=== PATIENT | female | born 1955 | race Two or more races ===

== ENCOUNTER 2017-02-28 19:41 | Inpatient (IN) | payer MEDICARE, MEDICAID ==
[~2017-02-28] VITALS: Ht 149.9 cm; Wt 57.2 kg
--- NOTE | 2017-02-28 19:46 | NUR ---
pt michael felder bus stop for report c/o dizziness w/ generalized weakness, states "I felt like I was going to pass out." while attempting to get on the bus today. AOx3 w/ resp even & unlabored, facial grimacing, denies any sob w/ mild discomfort noted. pt in gown, on continuous monitoring. Dr. Roach at bedside for further eval.
--- NOTE | 2017-02-28 20:11 | NUR ---
PUJA started, labs drawn & sent.
[2017-02-28 20:17] LABS: BASOPHILS % (AUTO) 0.5 % (0.0-2.0); EOSINOPHILS # (AUTO) 0.1 /CMM (0.0-0.7); HEMATOCRIT 40 % (33-45); HEMOGLOBIN 13.3 g/dL (11.5-14.8); LYMPHOCYTES # (AUTO) 2.1 /CMM (0.8-4.8); LYMPHOCYTES % (AUTO) 29.3 % (20.0-44.0); MEAN CORPUSCULAR HEMOGLOBIN 31 PG (26.0-33.0); MEAN CORPUSCULAR HGB CONC 33 g/dl (31.0-36.0); MEAN CORPUSCULAR VOLUME 93 fL (82-100); MONOCYTES # (AUTO) 0.4 /CMM (0.1-1.30); MONOCYTES % (AUTO) 5.8 % (2.0-12.0); NEUTROPHILS # (AUTO) 4.5 /CMM (1.8-8.9); NEUTROPHILS % (AUTO) 62.4 % (43.0-81.0); PLATELET COUNT (AUTO) 246 /CMM (150-450); RDW COEFFICIENT OF VARIATION 12.3 (11.5-15.0); RED BLOOD CELL COUNT(AUTO) 4.27 MIL/uL (4.0-5.2); WHITE BLOOD COUNT (AUTO) 7.1 K/uL (4.3-11.0)
[2017-02-28] MEDS ORDERED: ONDANSETRON HCL/PF 4 MG/2 ML VIAL ONE ×2 (20:17→21:55)
[2017-02-28] MEDS ORDERED: MECLIZINE HCL 25 MG TABLET ONE (20:17)
--- NOTE | 2017-02-28 20:26 | NUR ---
pt medicated as ordered.
[2017-02-28 20:28] LABS: CALCIUM, SERUM 9.4 mg/dL (8.5-10.1); CARBON DIOXIDE 24 mmol/L (21-32); CHLORIDE 103 mmol/L (98-107); CREATININE 0.8 mg/dL (0.6-1.3); GLUCOSE 133 mg/dL (74-106); POTASSIUM 3.7 mmol/L (3.5-5.1); SODIUM SERUM 140 mmol/L (136-145); UREA NITROGEN, BLOOD 27 mg/dL (7-18)
[2017-02-28] MEDS ORDERED: MECLIZINE HCL 12.5 MG TABLET PO ONE (20:30)
[2017-02-28] MEDS ORDERED: ONDANSETRON HCL/PF - ER 4 MG/2 ML VIAL IV ONE (20:30)
--- NOTE | 2017-02-28 20:30 | NUR ---
Sent to CT.
[2017-02-28 20:31] LABS: INR 0.94 (0.87-1.13); PROTHROMBIN TIME 9.8 SECS (9.5-12.7)
[2017-02-28 20:34] LABS: ALANINE AMINOTRANSFERASE 29 U/L (12-78); ALBUMIN 4.1 g/dL (3.4-5.0); ALKALINE PHOSPHATASE 66 U/L (46-116); ASPARTATE AMINOTRANSFERASE 45 U/L (15-37); BILIRUBIN,DIRECT 0.1 mg/dL (0.0-0.2); BILIRUBIN,TOTAL 0.3 mg/dL (0.2-1.0)
[2017-02-28 20:36] LABS: TROPONIN I < 0.017 ng/mL (0.00-0.056)
--- NOTE | 2017-02-28 20:58 | NUR ---
pt back fr CT w/ resp even & unlabored, nad noted.
--- NOTE | 2017-02-28 21:21 | NUR ---
DR.OLEG HERNANDEZ
[2017-02-28] MEDS ORDERED: IV SET PRIMARY 1 EA INFUS.SET MC ONE (21:55)
[2017-02-28] MEDS ORDERED: IV NS 0.9% 500 ML IV ONE (21:55)
[2017-02-28] MEDS ORDERED: IV NS 0.9% 500 ML BAG IV ONE (22:00)
[2017-02-28] MEDS ORDERED: ONDANSETRON HCL/PF 4 MG/2 ML VIAL IVP ONE (22:00)
--- NOTE | 2017-02-28 22:09 | NUR ---
Report given to JO-ANN Larson for TREMAINE, pt admission to tele rm [id number].
[2017-02-28] MEDS ORDERED: ONDANSETRON HCL/PF 4 MG/2 ML VIAL IVP PRN (22:30)
[2017-02-28] MEDS ORDERED: MAGNESIUM HYDROXIDE 30 ML UDC PO PRN (22:30)
[2017-02-28] MEDS ORDERED: ZOLPIDEM TARTRATE 5 MG TABLET PO PRN (22:30)
[2017-02-28] MEDS ORDERED: MORPHINE SULFATE INJ 2 MG/ML DISP.SYRIN IV PRN (22:30)
[2017-02-28 23:00] VITALS: BP 134/81
--- NOTE | 2017-02-28 23:00 | NUR ---
CHILD WELFARE ASSISTANT ADMITTING NOTES: ADMITTED A 61 YO FEMALE PATIENT WHO WAS BROUGHT TO TELE FLOOR VIA GURNEY AFTER BEING SEEN IN THE ER FOR DIZZINESS AND NAUSEA. PER REPORT, PATIENT WAS PICKED UP BY RETAIL MANAGEMENT KEYHOLDER FROM BUS STOP AFTER BEING VERY DIZZY. PATIENT IS AOX4, FRENCH SPEAKING, ON ROOM AIR, BREATHING EVEN AND UNLABORED. BREATH SOUNDS CLEAR TO AUSCULTATION. STATES THAT SHE DOES NOT FEEL NAUSEOUS AT THIS TIME. PIV OVER L HAND G 18 INTACT AND PATENT TO FLUSH. SKIN IS INTACT. PROVIDED FOR COMFORT AND SAFETY. ORIENTED TO UNIT. WILL CONT TO MONITOR.
[2017-02-28] MEDS ORDERED: IV PREMIX 0.45% NS + KCL 1,000 ML IV ONE (23:05)
[2017-02-28] MEDS ORDERED: IV SET PRIMARY PUMP SET 1 EA INFUS.SET MC ONE (23:08)
--- NOTE | 2017-02-28 23:32 | NUR ---
RN NOTES: UNABLE TO SCAN IV FLUID OF 1/2 NS + 20 MEQS KCL. MANUAL BARCODE ENTERED.
--- NOTE | 2017-03-01 06:45 | NUR ---
PATIENT CONSUMER MARKETER CLOSING NOTES: PATIENT IN BED, AOX4, ON ROOM AIR, BREATHING EVEN AND UNLABORED. ON TELE MONITOR, WITH SINUS RHYTHM AT RATE OF 60S. PIV OVER L HAND G18 INTACT AND INFUSING WELL WITH 1/2 NS + 20 MEQS KCL RUNNING AT 70 ML/HR. PROVIDED FOR COMFORT AND SAFETY. NO ACUTE CHANGE IN CONDITION NOTED THROUGH SHIFT. NO NAUSEA OR VOMITING NOTED. WILL ENDORSE TO AM RN FOR TREMAINE.
[2017-03-01 08:00] VITALS: BP 115/75
[2017-03-01] MEDS: DOCUSATE SODIUM 100 MG CAPSULE PO SCH ×2 (08:26→16:53)
[2017-03-01] MEDS: PANTOPRAZOLE 40 MG TABLET.DR PO SCH (08:26)
[2017-03-01 08:27] LABS: BASOPHILS % (AUTO) 0.5 % (0.0-2.0); EOSINOPHILS # (AUTO) 0.1 /CMM (0.0-0.7); EOSINOPHILS % (AUTO) 0.8 % (0.0-6.0); HEMATOCRIT 36 % (33-45); HEMOGLOBIN 12.1 g/dL (11.5-14.8); LYMPHOCYTES # (AUTO) 1.5 /CMM (0.8-4.8); LYMPHOCYTES % (AUTO) 22.1 % (20.0-44.0); MEAN CORPUSCULAR HEMOGLOBIN 31 PG (26.0-33.0); MEAN CORPUSCULAR HGB CONC 34 g/dl (31.0-36.0); MEAN CORPUSCULAR VOLUME 93 fL (82-100); MONOCYTES # (AUTO) 0.5 /CMM (0.1-1.30); MONOCYTES % (AUTO) 7.4 % (2.0-12.0); NEUTROPHILS # (AUTO) 4.6 /CMM (1.8-8.9); NEUTROPHILS % (AUTO) 69.2 % (43.0-81.0); PLATELET COUNT (AUTO) 229 /CMM (150-450); RDW COEFFICIENT OF VARIATION 13.1 (11.5-15.0); RED BLOOD CELL COUNT(AUTO) 3.86 MIL/uL (4.0-5.2); WHITE BLOOD COUNT (AUTO) 6.6 K/uL (4.3-11.0)
[2017-03-01] MEDS ORDERED: ATEN50TA PO (08:35)
[2017-03-01] MEDS ORDERED: MEMA10TA PO (08:35)
[2017-03-01] MEDS ORDERED: AMLO5TAB2 PO (08:37)
[2017-03-01 08:43] LABS: ALBUMIN 3.3 g/dL (3.4-5.0); BILIRUBIN,TOTAL 0.3 mg/dL (0.2-1.0); CALCIUM, SERUM 8.2 mg/dL (8.5-10.1); CREATININE 0.6 mg/dL (0.6-1.3); MAGNESIUM 2.2 mg/dL (1.8-2.4); PHOSPHORUS 3.2 mg/dL (2.5-4.9); POTASSIUM 3.8 mmol/L (3.5-5.1); TOTAL PROTEIN, SERUM 7.1 g/dL (6.4-8.2)
[2017-03-01 08:52] LABS: THYROID STIMULATING HORMONE 0.755 uIU/mL (0.358-3.74)
[2017-03-01] MEDS: MEMANTINE HCL 5 MG TABLET PO SCH ×2 (10:11→16:54)
--- NOTE | 2017-03-01 10:26 | NUR ---
Social service consult requested by Dr. Sebastian regarding pt. living alone. Per H&P report by Dr. Sebastian, pt. is a 61-year-old Female was brought in by ambulance complaining of dizziness and room spinning sensations while sitting at a bus stop earlier today. The patient reports nausea, but no vomiting. SW met with pt. bedside. Pt. is alert and oriented x 4. Pt. appeared lethargic. Pt. is ambulatory and independent with her ADL's. Pt. is Persian speaking and SW had a physical therapy nurse to assist in translation. Pt. informed SW she resides with her roommate Joanne who is also her emergency photoresist contact printer. Pt. resides at [address] [place] [address], [facility] [address], [place] [address]. Pt. has no family supports in [place]. Most of her family resides in [place]. Pt. would like to go back home once medically cleared for discharge. Pt. does not consume alcohol, drugs or cigarettes. Pt. is retired and receives approximately $800/ month is SSI. Pt. denies suicidal/homicidal ideations and visual/auditory hallucinations at this time. Pt. has no past history of psychiatric diagnosis or hospitalizations. No social service needs are required at this time and SW will re-assess if necessary. SAKINA updated rifle case repairer
[2017-03-01 12:00] VITALS: BP 138/85
[2017-03-01] MEDS: ACETAMINOPHEN 325 MG TABLET PO PRN (14:29)
[2017-03-01 16:00] VITALS: BP 132/84
[2017-03-01] MEDS ORDERED: MEMANTINE HCL 5 MG TABLET PO SCH (17:00)
--- NOTE | 2017-03-01 19:12 | NUR ---
HIGH SCHOOL VICE PRINCIPAL CLOSING NOTES NO SIGNIFICANT CHANGES IN PATIENT CONDITION THROUGHOUT THE SHIFT. NO SOB OR DISTRESS NOTED AT THIS TIME. PATIENT DENIES PAIN. HEART RATE SR AT 68. BED IN A LOW POSITION, CALL LIGHT WITHIN PATIENT REACH. WILL ENDORSE FOR TREMAINE.
--- NOTE | 2017-03-01 19:30 | NUR ---
TELE PARTS SALES MANAGER INITIAL NOTES GOT REPORT FROM AM NURSE DENAE, CHECKED PT SHE'S AWAKE AND ALERT WATCHING TV AT THIS TIME, COMPLAINING OF PAIN ON HER IV SITE LEFT HAND , INFILTRATED AND NOTED SWOLLEN. REMOVED AND AND APPLIED ICE PACK TO RELIEVED PAIN. DENIES ANY DIZZINESS AT THIS TIME. KEPT HER WARM AND COMFORTABLE AT ALL TIMES. TELE SINUS RHYTHM PER MONITOR, PLACE CALL LIGHT AT REACH WILL RE-INSERT A NEW LINE LATER. WILL CONTINUE TO MONITOR.
[2017-03-01 20:00] VITALS: BP 146/94
[2017-03-02] VITALS: BP 141/89
--- NOTE | 2017-03-02 | NUR ---
MEAT HANGER/NOTES PT SLEEPING AT THIS TIME WITHOUT ANY ACUTE DISTRESS NOTED. IVF STILL INFUSING . TELE SR PER MONITOR,.KEPT HER WARM AND COMFORTABLE AT ALL TIMES. WILL CONTINUE TO MONITOR.
[2017-03-02 04:00] VITALS: BP 136/87
--- NOTE | 2017-03-02 07:20 | NUR ---
HEEL TOP LIFT SPLITTER OPENING RECEIVED PATIENT A/0X4 CHILEAN SPEAKING. PATIENT DENIES DIZZINESS, SOB, DIFFICULTY BREATHING OR PAIN; IN STABLE CONDITION. NSR TELE. PATIENT STATES NO NEEDS AT THIS TIME. CALL LIGHT IN REACH, BED LOWERED AND LOCKED, RAILS UPX3 FOR SAFETY AND WILL ROUND Q2H OR LESS PER NEEDS.
[2017-03-02 08:00] VITALS: BP 141/89
[2017-03-02] MEDS: PANTOPRAZOLE 40 MG TABLET.DR PO SCH (08:25)
[2017-03-02 08:26] VITALS: BP 141/89
[2017-03-02] MEDS: DOCUSATE SODIUM 100 MG CAPSULE PO SCH (08:26)
[2017-03-02] MEDS: MEMANTINE HCL 5 MG TABLET PO SCH (08:26)
[2017-03-02] MEDS: ACETAMINOPHEN 325 MG TABLET PO PRN (08:28)
[2017-03-02] MEDS ORDERED: AMLODIPINE BESYLATE 5 MG TABLET PO SCH (09:00)
[2017-03-02] MEDS ORDERED: ATENOLOL 50 MG TABLET PO SCH (09:00)
[2017-03-02] MEDS ORDERED: MECL12.582 PO (09:55)
--- NOTE | 2017-03-02 11:19 | NUR ---
BIOLOGICS SPECIALIST NOTES PATIENT EDCUATED ON DISCHARGE. STABLE STATES UNDERSTANDING. RX CALLED TO PHARMACY. PATIENT IV REMOVED PRESSURE AND DRESSING APPLIED NO BLEEDING. PATIENT HAS TRANSPORT HOME WITH FAMILY. TRANSLATED WITH STEVE ESPINOZA AND PATIENT HAS NO FURTHER QUESTIONS.
--- NOTE | 2017-03-02 11:30 | NUR ---
SLAG EXPANDERAPPLICATION PACKAGING SPECIALIST PATIENT LEFT IN STABLE CONDITION NO COMPLICATIONS. ASSISTED DOWNSTAIRS TO PRIVATE CAR BY ALEXIS WILSON.
== END 2017-03-02 11:30 | disposition home health service (06) | DRG 391 ==
LOC: ER 19:42 → TELE 22:01
PROVIDERS: ADMIT Internal Medicine; ATTEND Internal Medicine
DX: A08.4 Viral intestinal infection, unspecified (principal); N17.0 Acute kidney failure with tubular necrosis; G93.41 Metabolic encephalopathy; E86.0 Dehydration; E78.5 Hyperlipidemia, unspecified; R42 Dizziness and giddiness; I10 Essential (primary) hypertension; F03.90 Unspecified dementia, unspecified severity, without behavioral disturbance, psychotic disturbance, mood disturbance, and anxiety; Z87.820 Personal history of traumatic brain injury; R73.9 Hyperglycemia, unspecified; I12.9 Hypertensive chronic kidney disease with stage 1 through stage 4 chronic kidney disease, or unspecified chronic kidney disease; N18.9 Chronic kidney disease, unspecified
CPT/HCPCS: 36415; 70450-TC; 70551-TC; 71010-TC; 80048-TC; 80053-TC; 80061-TC; 80076-TC; 83735-TC; 84100-TC; 84443-TC; 84484-TC; 85025-TC; 85730-TC; 87081-TC; 93307-TC; 93880-TC; A4606; A6403; J2405; J3480; J3490; J7040; J8597; Z7610

== ENCOUNTER 2017-07-21 19:07 | Emergency (ER) | payer MEDICARE, MEDICAID ==
[~2017-07-21] VITALS: Ht 157.5 cm; Wt 61.2 kg
[~2017-07-21 19:07] MED LIST: AMLO5TAB2 PO; ATEN50TA PO; MECL12.582 PO; MEMA10TA PO
[2017-07-21 19:10] VITALS: BP 153/88
--- NOTE | 2017-07-21 19:13 | NUR ---
[id number] FROM HOME: VERTIGO, SUDDEN ONSET. Hx OF VERTIGO. DENIES N/V/D. A/OX 4. BREATHING EVEN AND UNLABORED. NO SOB. VITALS STABLE. SAFETY AND COMFORT MEASURES IN PLACE. AWAITING MD ORDERS.
--- NOTE | 2017-07-21 19:23 | NUR ---
REPORT GIVEN TO CAMRYN BUSCH FOR TREMAINE.
[2017-07-21] MEDS ORDERED: ONDANSETRON 4 MG TAB.RAPDIS ONE (19:57)
[2017-07-21] MEDS ORDERED: MECLIZINE HCL 25 MG TABLET ONE (19:57)
[2017-07-21] MEDS ORDERED: ONDANSETRON 4 MG TAB.RAPDIS SL ONE (20:00)
[2017-07-21] MEDS ORDERED: MECLIZINE HCL 25 MG TABLET PO ONE (20:00)
== END 2017-07-21 21:01 | disposition home or self-care (01) ==
LOC: ER 19:07
DX: H81.10 Benign paroxysmal vertigo, unspecified ear (principal); I10 Essential (primary) hypertension; F03.90 Unspecified dementia, unspecified severity, without behavioral disturbance, psychotic disturbance, mood disturbance, and anxiety; Z98.890 Other specified postprocedural states
CPT/HCPCS: 99283; A4606; J8597; Q0162; Z7610

== ENCOUNTER 2018-12-30 02:22 | Emergency (ER) | payer MEDICARE, MEDICAID ==
[~2018-12-30] VITALS: Ht 157.5 cm; Wt 56.7 kg
[~2018-12-30 02:22] MED LIST changes: -AMLO5TAB2 PO; +AMLO5TAB9 PO
[2018-12-30] MEDS ORDERED: PHENYLEPHRINE HCL NASAL SPRAY 15 ML BOTTLE NS ONE (02:32)
--- NOTE | 2018-12-30 02:35 | NUR ---
PT'S NOSE IS SEVERLY BLEEDING. NOSE CLIP PLACED ON THE PT'S NOSE. PT HAS AN EMESIS BASIN AND 4X4'S.
--- NOTE | 2018-12-30 02:35 | NUR ---
PT BIB RA WITH A C/O EPISTAXIS X 1 HR BUTCHER ASSISTANT. PT HAS HIGH BP AND RAN OUT OF HER MEDICATION TODAY. PT'S BP IS ELEVATED. PT DENIES BEING ON A BLOOD THINNER. PT WAS TAKEN TO ER 9 AND TRIAGED. PT IS ON THE MONITOR AND CONTINUOUS PULSE OX. PT'S BP IS ELEVATED. DR FUENTES IS AT THE BEDSIDE.
[2018-12-30] MEDS ORDERED: ENALAPRILAT DIHYD. (2.5MG/ML) 1.25 MG/ML VIAL IV ONE (02:41)
--- NOTE | 2018-12-30 02:42 | NUR ---
NEOSYNEPHRINE BOTTLE IS AT THE BEDSIDE.
--- NOTE | 2018-12-30 02:54 | NUR ---
PT IS STILL BLEEDING. PT REC'D MEDICATION ORDERED.
[2018-12-30 02:57] LABS: BASOPHILS # (AUTO) 0.1 /CMM (0.0-0.2); BASOPHILS % (AUTO) 0.9 % (0.0-2.0); EOSINOPHILS % (AUTO) 1.6 % (0.0-6.0); HEMATOCRIT 39 % (33-45); HEMOGLOBIN 12.9 g/dL (11.5-14.8); LYMPHOCYTES # (AUTO) 1.8 /CMM (0.8-4.8); MEAN CORPUSCULAR HGB CONC 34 g/dl (31.0-36.0); MEAN CORPUSCULAR VOLUME 94 fL (82-100); MONOCYTES # (AUTO) 0.5 /CMM (0.1-1.30); MONOCYTES % (AUTO) 6.7 % (2.0-12.0); NEUTROPHILS # (AUTO) 4.6 /CMM (1.8-8.9); NEUTROPHILS % (AUTO) 65.8 % (43.0-81.0); PLATELET COUNT (AUTO) 270 /CMM (150-450); RED BLOOD CELL COUNT(AUTO) 4.09 MIL/uL (4.0-5.2)
[2018-12-30] MEDS ORDERED: ENALAPRILAT INJ (1.25 MG/ML) 1.25 MG/ML VIAL IV PRN (03:00)
[2018-12-30] MEDS ORDERED: PHENYLEPHRINE 0.5% NASAL SPRAY 15 ML BOTTLE NS ONE (03:00)
[2018-12-30] MEDS ORDERED: IV NS 0.9% 1,000 ML BAG IV ONE (03:00)
--- NOTE | 2018-12-30 03:00 | NUR ---
BILATERAL 7.[address] FUENTES.
[2018-12-30 03:05] LABS: CALCIUM, SERUM 8.8 mg/dL (8.5-10.1); CREATININE 0.6 mg/dL (0.6-1.3); POTASSIUM 3.7 mmol/L (3.5-5.1)
[2018-12-30] MEDS ORDERED: IBUPROFEN 600 MG TABLET PO ONE ×2 (04:04→04:30)
--- NOTE | 2018-12-30 04:19 | NUR ---
PT C/O HAVING A HEADACHE. DR. FUENTES NOTIFIED AND NEW ORDERS WERE GIVEN.
--- NOTE | 2018-12-30 04:20 | NUR ---
Patient discharged to home in stable condition. Written and verbal after care instructions given. Patient verbalizes understanding of instruction. PT CALLED AN UBER AND AMBULATED TO THE LOBBY TO WAIT FOR P/U. VSS
[2018-12-30 04:30] VITALS: BP 149/80
== END 2018-12-30 04:31 | disposition home or self-care (01) ==
LOC: ER 02:28
DX: R04.0 Epistaxis (principal); I10 Essential (primary) hypertension; F03.90 Unspecified dementia, unspecified severity, without behavioral disturbance, psychotic disturbance, mood disturbance, and anxiety; Z98.890 Other specified postprocedural states; Z60.2 Problems related to living alone; Z79.899 Other long term (current) drug therapy
CPT/HCPCS: 30901; 36415; 80048; 85025; 85730; 96374; 99284; J3490 ×2; J7030

== ENCOUNTER 2018-12-30 12:34 | Emergency (ER) | payer MEDICARE, MEDICAID ==
[~2018-12-30] VITALS: Ht 149.9 cm; Wt 54.9 kg
[2018-12-30 13:40] VITALS: BP 153/97
== END 2018-12-30 13:51 | disposition home or self-care (01) ==
LOC: ER 12:34
DX: R04.0 Epistaxis (principal); I10 Essential (primary) hypertension; F03.90 Unspecified dementia, unspecified severity, without behavioral disturbance, psychotic disturbance, mood disturbance, and anxiety; R42 Dizziness and giddiness; Z98.890 Other specified postprocedural states; Z60.2 Problems related to living alone

== ENCOUNTER 2018-12-30 20:23 | Emergency (ER) | payer MEDICARE, MEDICAID ==
[~2018-12-30] VITALS: Ht 157.5 cm; Wt 58.1 kg
--- NOTE | 2018-12-30 20:33 | NUR ---
came back for re-check- nose bleed
--- NOTE | 2018-12-30 20:38 | NUR ---
awaiting for md to see
--- NOTE | 2018-12-30 20:56 | NUR ---
DR HAJI IS AT THE BEDSIDE REMOVING THE RHINO ROCKET.
[2018-12-30] MEDS ORDERED: ACETAMINOPHEN ES 500 MG TABLET PO ONE (22:00)
[2018-12-30] MEDS ORDERED: ACETAMINOPHEN ES 500 MG TABLET ONE (22:05)
--- NOTE | 2018-12-30 22:18 | NUR ---
Patient discharged to home in stable condition. Written and verbal after care instructions given. Patient verbalizes understanding of instruction. PT'S VSS. PT AMBULATED OUT WITH A STEADY.
[2018-12-30 22:19] VITALS: BP 126/76
== END 2018-12-30 21:59 | disposition home or self-care (01) ==
LOC: ER 20:25
DX: R04.0 Epistaxis (principal); F03.90 Unspecified dementia, unspecified severity, without behavioral disturbance, psychotic disturbance, mood disturbance, and anxiety; R42 Dizziness and giddiness; I10 Essential (primary) hypertension; Z98.890 Other specified postprocedural states; Z60.2 Problems related to living alone; Z48.01 Encounter for change or removal of surgical wound dressing

== ENCOUNTER 2019-01-01 12:24 | Emergency (ER) | payer MEDICARE, MEDICAID ==
[~2019-01-01] VITALS: Ht 165.1 cm; Wt 65.8 kg
[2019-01-01 12:37] VITALS: BP 107/78
--- NOTE | 2019-01-01 13:26 | NUR ---
Patient discharged to home in stable condition. Written and verbal after care instructions given. Patient verbalizes understanding of instruction.
== END 2019-01-01 13:26 | disposition home or self-care (01) ==
LOC: ER 12:24
DX: Z48.01 Encounter for change or removal of surgical wound dressing (principal); I10 Essential (primary) hypertension; F03.90 Unspecified dementia, unspecified severity, without behavioral disturbance, psychotic disturbance, mood disturbance, and anxiety; R42 Dizziness and giddiness; Z98.890 Other specified postprocedural states; Z60.2 Problems related to living alone
CPT/HCPCS: Z7502

== ENCOUNTER 2020-05-27 16:40 | Emergency (ER) | payer MEDICARE, MEDICAID ==
[~2020-05-27] VITALS: Ht 149.9 cm; Wt 53.5 kg
[~2020-05-27 16:40] MED LIST changes: +MECL-182 PO; -MECL12.582 PO
[2020-05-27] MEDS ORDERED: IV NS 0.9% 1,000 ML BAG IV ONE (17:00)
[2020-05-27 17:02] LABS: BASOPHILS # (AUTO) 0.1 /CMM (0.0-0.2); BASOPHILS % (AUTO) 0.7 % (0.0-2.0); EOSINOPHILS % (AUTO) 0.7 % (0.0-6.0); HEMATOCRIT 36 % (33-45); LYMPHOCYTES # (AUTO) 1.8 /CMM (0.8-4.8); LYMPHOCYTES % (AUTO) 24.4 % (20.0-44.0); MEAN CORPUSCULAR HGB CONC 33 g/dl (31.0-36.0); MEAN CORPUSCULAR VOLUME 96 fL (82-100); MONOCYTES # (AUTO) 0.5 /CMM (0.1-1.30); MONOCYTES % (AUTO) 6.6 % (2.0-12.0); NEUTROPHILS % (AUTO) 67.6 % (43.0-81.0); PLATELET COUNT (AUTO) 248 /CMM (150-450); RED BLOOD CELL COUNT(AUTO) 3.74 MIL/uL (4.0-5.2); WHITE BLOOD COUNT (AUTO) 7.4 K/uL (4.3-11.0)
--- NOTE | 2020-05-27 17:05 | NUR ---
[id number] FROM FRIENDS HOUSE C/O DIZZINESS. PT AAOX4, VSS. RR EVEN & UNLABORED. DENIES CP, SOB, N/V/D, WEAKNESS AT THIS TIME. PT SEEN & EVAL'D BY DR. CORONEL. PLACED ON ART TRACER, SR. WILL CONT TO MONITOR.
[2020-05-27 17:11] LABS: CALCIUM, SERUM 8.9 mg/dL (8.5-10.1); CARBON DIOXIDE 23 mmol/L (21-32); CHLORIDE 105 mmol/L (98-107); CREATININE 0.8 mg/dL (0.6-1.3); GLUCOSE 130 mg/dL (74-106); POTASSIUM 3.3 mmol/L (3.5-5.1); SODIUM SERUM 138 mmol/L (136-145); UREA NITROGEN, BLOOD 23 mg/dL (7-18)
[2020-05-27 17:23] LABS: ALANINE AMINOTRANSFERASE 21 U/L (12-78); ALBUMIN 4.1 g/dL (3.4-5.0); ALKALINE PHOSPHATASE 56 U/L (46-116); ASPARTATE AMINOTRANSFERASE 27 U/L (15-37); BILIRUBIN,DIRECT 0.1 mg/dL (0.0-0.2); BILIRUBIN,TOTAL 0.3 mg/dL (0.2-1.0)
[2020-05-27] MEDS ORDERED: MECLIZINE HCL 25 MG TABLET PO ONE (17:30)
[2020-05-27] MEDS ORDERED: MECLIZINE HCL 25 MG TABLET ONE (17:32)
--- NOTE | 2020-05-27 18:55 | NUR ---
Patient discharged to home in stable condition. Written and verbal after care instructions given. Patient verbalizes understanding of instruction. IV removed. Catheter intact and site benign. Pressure and 4x4 applied to site. No bleeding noted.
[2020-05-27 18:56] VITALS: BP 112/70
== END 2020-05-27 19:03 | disposition home or self-care (01) ==
LOC: ER 16:40
DX: R42 Dizziness and giddiness (principal); F03.90 Unspecified dementia, unspecified severity, without behavioral disturbance, psychotic disturbance, mood disturbance, and anxiety; I10 Essential (primary) hypertension; Z98.890 Other specified postprocedural states; Z60.2 Problems related to living alone; Z79.899 Other long term (current) drug therapy
CPT/HCPCS: 36415; 70450; 71045; 80048; 80076; 84484; 85025; 93005 ×3; 96360; 99285; J7030; J8597